=== PATIENT | female | born 1950 | race Caucasian/White ===

== ENCOUNTER 2017-10-04 13:27 | Outpatient (CLI) | payer MEDICARE ==
--- NOTE | 2017-10-04 15:49 | RAD ---
PA AND LATERAL VIEWS OF CHEST: Date: 10/04/17 HISTORY: Dyspnea. FINDINGS: The heart size is normal. The aorta is tortuous. The lungs are well expanded without focal areas of c onsolidation, pneumothoraces, or pleural effusions. There are degenerative changes in the spine. IMPRESSION: No radiographic evidence of acute cardiopulmonary process. POS: C
== END 2017-10-04 13:28 | disposition home or self-care (01) ==
LOC: RAD 13:27
PROVIDERS: ATTEND Internal Medicine Pulmonary Disease
DX: R06.00 Dyspnea, unspecified (principal)
CPT/HCPCS: 71046

== ENCOUNTER 2017-11-19 20:30 | Outpatient (CLI) | payer MEDICARE | END 2017-11-19 20:31 | disposition home or self-care (01) | LOC: SLEEPLAB 20:30 | PROVIDERS: ATTEND Internal Medicine Pulmonary Disease | DX: G47.33 Obstructive sleep apnea (adult) (pediatric) (principal); E66.9 Obesity, unspecified; R06.83 Snoring; I48.91 Unspecified atrial fibrillation; Z68.39 Body mass index [BMI] 39.0-39.9, adult | CPT/HCPCS: 95810 ==

== ENCOUNTER 2018-01-08 19:30 | Outpatient (CLI) | payer MEDICARE | END 2018-01-08 19:31 | disposition home or self-care (01) | LOC: SLEEPLAB 19:30 | PROVIDERS: ATTEND Internal Medicine Pulmonary Disease | DX: G47.33 Obstructive sleep apnea (adult) (pediatric) (principal); I49.9 Cardiac arrhythmia, unspecified; R06.83 Snoring; E66.9 Obesity, unspecified; Z68.39 Body mass index [BMI] 39.0-39.9, adult | CPT/HCPCS: 95811 ==

== ENCOUNTER 2019-02-14 15:50 | Outpatient (CLI) | payer MEDICARE ==
--- NOTE | 2019-02-14 16:37 | MMO ---
Bilateral MAMMO Bilat Screen [facility]. CLINICAL HISTORY: Patient is 68 years old and is seen for screening. The patient has no family history of breast cancer. The patient has no personal history of cancer. The patient has a history of left Excisional Biopsy in 18 - benign. VIEWS: The views performed were: bilateral craniocaudal with tomosynthesis and bilateral mediolateral oblique with tomosynthesis. FILMS COMPARED: The present examination has been compared to prior imaging studies performed at [facility] on 12/24/2014, 12/27/2015, 01/15/2017 and 02/08/2018. MAMMOGRAM FINDINGS: There are scattered fibroglandular densities. There are no suspicious masses, suspicious calcifications, or new areas of architectural distortion. IMPRESSION: THERE IS NO MAMMOGRAPHIC EVIDENCE OF MALIGNANCY. A ROUTINE FOLLOW-UP MAMMOGRAM IN 1 YEAR IS RECOMMENDED. THE RESULTS OF THIS EXAM WERE SENT TO THE PATIENT. ACR BI-RADS Category 1 - Negative MAMMOGRAPHY NOTE: 1. A negative mammogram report should not delay a biopsy if a dominant of clinically suspicious mass is present. 2. Approximately 10% to 15% of breast cancers are not detected by mammography. 3. Adenosis and dense breasts may obscure an underlying neoplasm. Reported by: ILIR HURLEY MD Electonically Signed: [id number]
== END 2019-02-14 15:51 | disposition home or self-care (01) ==
LOC: BICMAMMO 15:50
PROVIDERS: ATTEND Student in an Organized Health Care Education/Training Program
DX: Z12.31 Encounter for screening mammogram for malignant neoplasm of breast (principal); Z91.89 Other specified personal risk factors, not elsewhere classified
CPT/HCPCS: 77063; 77067

== ENCOUNTER 2020-03-12 14:24 | Outpatient (CLI) | payer MEDICARE ==
--- NOTE | 2020-03-12 15:08 | MMO ---
Bilateral MAMMO Bilat Screen [facility]. CLINICAL HISTORY: Patient is 69 years old and is seen for screening. The patient has no family history of breast cancer. The patient has no personal history of cancer. The patient has a history of left Excisional Biopsy in 18 - benign. VIEWS: The views performed were: bilateral craniocaudal with tomosynthesis and bilateral mediolateral oblique with tomosynthesis. FILMS COMPARED: The present examination has been compared to prior imaging studies performed at [facility] on 12/27/2015, 01/15/2017, 02/08/2018 and 02/14/2019. This study has been interpreted with the assistance of computer-aided detection. MAMMOGRAM FINDINGS: There are scattered fibroglandular densities. Finding 1: There are stable benign appearing calcifications seen in both breasts. Finding 2: There are multiple masses of varying size with circumscribed margins seen in both breasts. There are no suspicious masses, suspicious calcifications, or new areas of architectural distortion. IMPRESSION: THERE IS NO MAMMOGRAPHIC EVIDENCE OF MALIGNANCY. A ROUTINE FOLLOW-UP MAMMOGRAM IN 1 YEAR IS RECOMMENDED. THE RESULTS OF THIS EXAM WERE SENT TO THE PATIENT. ACR BI-RADS Category 2 - Benign finding MAMMOGRAPHY NOTE: 1. A negative mammogram report should not delay a biopsy if a dominant of clinically suspicious mass is present. 2. Approximately 10% to 15% of breast cancers are not detected by mammography. 3. Adenosis and dense breasts may obscure an underlying neoplasm. Reported by: ALOK PEÑA MD Electonically Signed: [id number]
== END 2020-03-12 14:25 | disposition home or self-care (01) ==
LOC: BICMAMMO 14:24
PROVIDERS: ATTEND Student in an Organized Health Care Education/Training Program
DX: Z12.31 Encounter for screening mammogram for malignant neoplasm of breast (principal); Z91.89 Other specified personal risk factors, not elsewhere classified
CPT/HCPCS: 77063; 77067

== ENCOUNTER 2021-06-10 13:56 | Outpatient (CLI) | payer MEDICARE | END 2021-06-10 13:57 | disposition home or self-care (01) | LOC: BICMAMMO 13:56 | PROVIDERS: ATTEND Student in an Organized Health Care Education/Training Program | DX: Z12.31 Encounter for screening mammogram for malignant neoplasm of breast (principal); N63.25 Unspecified lump in the left breast, overlapping quadrants; Z91.89 Other specified personal risk factors, not elsewhere classified | CPT/HCPCS: 77063; 77067 ==

== ENCOUNTER 2021-06-13 15:22 | Outpatient (CLI) | payer MEDICARE | END 2021-06-13 15:23 | disposition home or self-care (01) | LOC: BICULT 15:22 | PROVIDERS: ATTEND Student in an Organized Health Care Education/Training Program | DX: R92.8 Other abnormal and inconclusive findings on diagnostic imaging of breast (principal) ==

== ENCOUNTER 2021-12-02 09:35 | Emergency (ER) | payer OTHER, MEDICARE ==
[2021-12-02] MEDS ORDERED: Boostrix 0.5 ML (Tdap) VIAL ONE ×2 (10:07→10:43)
[2021-12-02] MEDS ORDERED: Acetaminophen 500 MG TAB ONE (10:07)
[2021-12-02] MEDS ORDERED: Lidocaine 2% PF 5 ML VIAL ONE (10:08)
== END 2021-12-02 10:50 | disposition home or self-care (01) ==
LOC: ERS 09:35
DX: S61.412A Laceration without foreign body of left hand, initial encounter (principal); I48.91 Unspecified atrial fibrillation; E03.9 Hypothyroidism, unspecified; W54.0XXA Bitten by dog, initial encounter; Z23 Encounter for immunization; Z79.899 Other long term (current) drug therapy
CPT/HCPCS: 12001; 90471; 90715; J2001

== ENCOUNTER 2022-06-17 14:57 | Outpatient (CLI) | payer MEDICARE | END 2022-06-17 14:58 | disposition home or self-care (01) | LOC: BICMAMMO 14:57 | PROVIDERS: ATTEND Student in an Organized Health Care Education/Training Program | DX: Z12.31 Encounter for screening mammogram for malignant neoplasm of breast (principal); Z91.89 Other specified personal risk factors, not elsewhere classified | CPT/HCPCS: 77063; 77067 ==

== ENCOUNTER 2023-05-17 13:01 | Inpatient (IN) | payer MEDICARE ==
[2023-05-17] MEDS ORDERED: Ondansetron PF 4 MG/2 ML Vial ONE (13:15)
[2023-05-17 13:49] LABS: #Basophils 0.1 thou/uL (0.0-0.2); #Eosinphils 0.3 thou/uL (0.0-0.7); #Monocytes 1.3 thou/uL (0.11-0.59); %Eosinophils 2.6 % (0.0-10.0); %Lymphocytes 29.7 % (21.0-51.0); %Monocytes 13.3 % (0.0-10.0); %Neutrophils 53.2 % (42.0-75.0); Hematocrit 42.7 % (36.0-47.0); Hemoglobin 14.1 g/dL (12.0-16.0); Mean Corpuscular Hemoglobin 30.6 pg (27.0-31.0); Mean Corpuscular Volume 92.6 fl (78.0-98.0); Mean Platelet Volume 9.4 fL (7.4-10.4); Platelet Count 301 10x3/uL (130-400); RBC Distribution Width 13.5 % (11.5-14.5); Red Blood Cell (RBC) Count 4.61 mill/uL (4.20-5.40); White Blood Cell (WBC) Count 9.5 10x3/uL (4.8-10.8)
[2023-05-17] MEDS ORDERED: Famotidine/PF 20 mg/2ml Vial ONE (14:08)
[2023-05-17] MEDS ORDERED: Morphine 4 MG/ML VIAL ONE (14:08)
[2023-05-17 14:19] LABS: ALT (SGPT) 360 U/L (8-55); AST (SGOT) 267 U/L (5-34); Albumin 4.7 g/dL (3.4-4.8); Alkaline Phosphatase 163 U/L (40-110); Anion Gap 15 mmol/L (10-20); BUN (Urea Nitrogen) 16 mg/dL (9.8-20.1); Bilirubin, Total 3.7 mg/dL (0.2-1.2); Calc. Creatinine Clearance 0 mL/min (70-130); Calcium 9.6 mg/dL (7.8-10.44); Carbon Dioxide 25 mmol/L (23-31); Chloride 105 mmol/L (98-107); Estimated GFR 81; Globulin 2.7 g/dL (2.4-3.5); Glucose 110 mg/dL (83-110); Protein, Total 7.4 g/dL (5.8-8.1); Sodium 141 mmol/L (136-145)
[2023-05-17 14:51] LABS: Troponin I Less than 0.010 ng/mL (< 0.028)
[2023-05-17] MEDS ORDERED: Piperacillin/Tazobactam 3.375 GM VIAL ONE (15:01)
[2023-05-17] MEDS ORDERED: Sodium Chloride 0.9% 100 ML ONE (15:02)
[2023-05-17] MEDS ORDERED: Magnevist 469MG/ML 20 ML VIAL ONE (15:08)
[2023-05-17 15:12] LABS: Lipase Greater than 16000 U/L (8-78)
[2023-05-17] MEDS ORDERED: Promethazine HCl 25 MG/ML VIAL IM PRN ×2 (15:47)
[2023-05-17] MEDS ORDERED: Acetaminophen 650 MG Suppository PR PRN (15:47)
[2023-05-17] MEDS ORDERED: Morphine 2 MG/ML VIAL SLOW IVP PRN (15:53)
[2023-05-17] MEDS ORDERED: hydrALAZINE 20 MG/ML VIAL SLOW IVP PRN (17:19)
[2023-05-17 17:39] LABS: Magnesium 2.2 mg/dL (1.6-2.6)
[2023-05-17] MEDS: Sodium Chloride 0.9% 1,000 ML IV SCH (18:05)
[2023-05-17] MEDS: Morphine 4 MG/ML VIAL SLOW IVP PRN (18:06)
[2023-05-17] MEDS: Famotidine/PF 20 mg/2ml Vial SLOW IVP SCH (19:42)
[2023-05-17] MEDS: Piperacillin/Tazobactam 3.375 GM in Sodium Chloride 0.9% 100 ML IVPB SCH (19:42)
[2023-05-17] MEDS: Ondansetron PF 4 MG/2 ML Vial IVP PRN (19:42)
[2023-05-18] MEDS: Piperacillin/Tazobactam 3.375 GM in Sodium Chloride 0.9% 100 ML IVPB SCH ×3 (04:05→20:30)
[2023-05-18] MEDS: Morphine 4 MG/ML VIAL SLOW IVP PRN (04:05)
[2023-05-18] MEDS: Sodium Chloride 0.9% 1,000 ML IV SCH ×5 (05:33→22:09)
[2023-05-18 06:14] LABS: #Basophils 0.1 thou/uL (0.0-0.2); #Eosinphils 0.1 thou/uL (0.0-0.7); #Monocytes 0.7 thou/uL (0.11-0.59); #Neutrophils 5.2 thou/uL (1.40-6.50); %Basophils 0.8 % (0.0-1.0); %Eosinophils 1.2 % (0.0-10.0); %Lymphocytes 18.6 % (21.0-51.0); %Monocytes 9.5 % (0.0-10.0); %Neutrophils 69.5 % (42.0-75.0); Hematocrit 38.7 % (36.0-47.0); Hemoglobin 12.4 g/dL (12.0-16.0); Mean Corpuscular Hemoglobin 30.6 pg (27.0-31.0); Mean Platelet Volume 9.2 fL (7.4-10.4); Platelet Count 234 10x3/uL (130-400); RBC Distribution Width 13.6 % (11.5-14.5); Red Blood Cell (RBC) Count 4.05 mill/uL (4.20-5.40); White Blood Cell (WBC) Count 7.5 10x3/uL (4.8-10.8)
[2023-05-18 06:17] LABS: Mean Corpuscular Volume 95.6 fl (78.0-98.0)
[2023-05-18 06:51] LABS: Lipase 1952 U/L (8-78)
[2023-05-18 07:13] LABS: ALT (SGPT) 220 U/L (8-55); AST (SGOT) 104 U/L (5-34); Albumin 3.6 g/dL (3.4-4.8); Alkaline Phosphatase 120 U/L (40-110); Anion Gap 13 mmol/L (10-20); BUN (Urea Nitrogen) 16 mg/dL (9.8-20.1); Bilirubin, Total 0.9 mg/dL (0.2-1.2); Calc. Creatinine Clearance 92 mL/min (70-130); Calcium 8.6 mg/dL (7.8-10.44); Carbon Dioxide 22 mmol/L (23-31); Cardiac Risk 3.2 (Less than 4.5); Chloride 110 mmol/L (98-107); Cholesterol 161 mg/dl (< 200 Desired); Estimated GFR 86; Globulin 2.5 g/dL (2.4-3.5); Glucose 87 mg/dL (83-110); HDL Cholesterol 51 mg/dL (>60 Neg Risk); LDL Cholesterol, Calculated 93 mg/dL; Phosphorus 3.8 mg/dL (2.3-4.7); Potassium 3.7 mmol/L (3.5-5.1); Protein, Total 6.1 g/dL (5.8-8.1); Sodium 141 mmol/L (136-145); Triglycerides 86 mg/dL (Less than 150)
[2023-05-18] MEDS: Famotidine/PF 20 mg/2ml Vial SLOW IVP SCH ×2 (08:49→22:07)
[2023-05-19] MEDS: Piperacillin/Tazobactam 3.375 GM in Sodium Chloride 0.9% 100 ML IVPB SCH ×3 (04:13→20:50)
[2023-05-19] MEDS: Sodium Chloride 0.9% 1,000 ML IV SCH ×2 (04:20→19:49)
[2023-05-19] MEDS: Levothyroxine Sodium 50 MCG TAB PO SCH (06:08)
[2023-05-19 07:05] LABS: #Basophils 0.1 thou/uL (0.0-0.2); #Eosinphils 0.4 thou/uL (0.0-0.7); #Monocytes 1.1 thou/uL (0.11-0.59); #Neutrophils 5.8 thou/uL (1.40-6.50); %Basophils 0.6 % (0.0-1.0); %Eosinophils 3.9 % (0.0-10.0); %Lymphocytes 18.1 % (21.0-51.0); %Monocytes 12.7 % (0.0-10.0); %Neutrophils 64.5 % (42.0-75.0); Hematocrit 36.7 % (36.0-47.0); Mean Corpuscular HGB CONC 32.7 g/dL (32.0-36.0); Mean Corpuscular Hemoglobin 30.8 pg (27.0-31.0); Mean Corpuscular Volume 94.1 fl (78.0-98.0); Mean Platelet Volume 9.4 fL (7.4-10.4); Platelet Count 221 10x3/uL (130-400); RBC Distribution Width 13.4 % (11.5-14.5)
[2023-05-19 07:39] LABS: INR-International Normal Ratio 1.2; Prothrombin Time 15.8 sec (12.0-14.7)
[2023-05-19] MEDS ORDERED: fentaNYL PF 100 MCG/2 ML SYRINGE ONE (07:57)
[2023-05-19] MEDS ORDERED: SUGAMMADEX SODIUM 200 MG/2 ML VIAL ONE (07:58)
[2023-05-19 08:10] LABS: ALT (SGPT) 151 U/L (8-55); AST (SGOT) 47 U/L (5-34); Albumin 3.5 g/dL (3.4-4.8); Alkaline Phosphatase 102 U/L (40-110); Anion Gap 14 mmol/L (10-20); BUN (Urea Nitrogen) 9 mg/dL (9.8-20.1); Calc. Creatinine Clearance 96 mL/min (70-130); Calcium 8.3 mg/dL (7.8-10.44); Carbon Dioxide 20 mmol/L (23-31); Chloride 107 mmol/L (98-107); Estimated GFR 91; Globulin 2.5 g/dL (2.4-3.5); Glucose 92 mg/dL (83-110); Potassium 3.4 mmol/L (3.5-5.1); Sodium 138 mmol/L (136-145)
[2023-05-19] MEDS ORDERED: Indomethacin 50 MG SUPP ONE (08:14)
[2023-05-19] MEDS ORDERED: Iopamidol 30 ML ONE (08:15)
[2023-05-19] MEDS ORDERED: Dexamethasone 20 MG/5 ML VIAL ONE (09:30)
[2023-05-19] MEDS ORDERED: Ondansetron PF 4 MG/2 ML Vial ONE ×2 (09:30→11:02)
[2023-05-19] MEDS ORDERED: PROPOFOL 200 MG/20 ML VIAL ONE (09:30)
[2023-05-19] MEDS ORDERED: Rocuronium Bromide 10 MG/ML (10ML VIAL) ONE (09:30)
[2023-05-19] MEDS ORDERED: Ondansetron HCl/PF 4 MG/2 ML Vial IVP PRN (09:45)
[2023-05-19] MEDS ORDERED: Promethazine HCl 25 MG/ML VIAL IM PRN (09:45)
[2023-05-19] MEDS ORDERED: HYDROmorphone 2 MG/ML VIAL SLOW IVP PRN (09:45)
[2023-05-19] MEDS: Famotidine/PF 20 mg/2ml Vial SLOW IVP SCH ×2 (11:41→20:50)
[2023-05-19] MEDS: Isosorbide Mononitrate 30 MG ER.TAB PO SCH (11:42)
[2023-05-19] MEDS: Ondansetron PF 4 MG/2 ML Vial IVP PRN ×2 (16:16→23:27)
[2023-05-20] MEDS: Sodium Chloride 0.9% 1,000 ML IV SCH ×4 (01:36→17:34)
[2023-05-20] MEDS: Piperacillin/Tazobactam 3.375 GM in Sodium Chloride 0.9% 100 ML IVPB SCH ×3 (04:52→20:17)
[2023-05-20] MEDS: Levothyroxine Sodium 50 MCG TAB PO SCH (05:00)
[2023-05-20 05:05] VITALS: BMI 34.6
[2023-05-20] MEDS: Isosorbide Mononitrate 30 MG ER.TAB PO SCH (08:07)
[2023-05-20] MEDS: Morphine 4 MG/ML VIAL SLOW IVP PRN (08:07)
[2023-05-20] MEDS: Famotidine/PF 20 mg/2ml Vial SLOW IVP SCH ×2 (08:07→20:18)
[2023-05-20] MEDS: Potassium Chloride 20 MEQ in Premix 1 BAG IVPB SCH ×2 (08:13→11:27)
[2023-05-20] MEDS ORDERED: Piperacillin/Tazobactam 3.375 GM VIAL ONE (10:11)
[2023-05-20] MEDS ORDERED: EPINEPHrine 1 MG/ML VIAL ONE (13:02)
[2023-05-20] MEDS ORDERED: Bupivacaine 0.25% HCL 30 ML VIAL ONE (13:03)
[2023-05-20] MEDS ORDERED: fentaNYL PF 100 MCG/2 ML SYRINGE ONE ×2 (15:04→16:17)
[2023-05-20] MEDS ORDERED: Dexamethasone 20 MG/5 ML VIAL ONE (15:18)
[2023-05-20] MEDS ORDERED: Ondansetron PF 4 MG/2 ML Vial ONE ×2 (15:18→16:57)
[2023-05-20] MEDS ORDERED: Rocuronium Bromide 10 MG/ML (10ML VIAL) ONE (15:18)
[2023-05-20] MEDS ORDERED: NEOSTIGMINE 3 MG/3 ML SYR 3 MG/3 ML SYRINGE ONE (15:18)
[2023-05-20] MEDS ORDERED: Metoclopramide HCl 10 MG/2 ML VIAL ONE (15:18)
[2023-05-20] MEDS ORDERED: Lidocaine 1% PF 5 ML VIAL ONE (15:18)
[2023-05-20] MEDS ORDERED: PROPOFOL 200 MG/20 ML VIAL ONE (15:18)
[2023-05-20] MEDS ORDERED: Glycopyrrolate 0.2 MG/ML 5 ML SYRINGE ONE (15:18)
[2023-05-20] MEDS ORDERED: Metoprolol Tartrate 5 MG/5 ML VIAL ONE (15:18)
[2023-05-20] MEDS ORDERED: Succinylcholine Chloride 100 MG/5 ML SYRINGE FS ONE (15:18)
[2023-05-20] MEDS ORDERED: Ondansetron HCl/PF 4 MG/2 ML Vial IVP PRN ×2 (15:54→15:55)
[2023-05-20] MEDS ORDERED: Morphine Sulfate 2 MG/ML SYRINGE SLOW IVP PRN (15:54)
[2023-05-20] MEDS ORDERED: HYDROmorphone 2 MG/ML VIAL SLOW IVP PRN (15:54)
[2023-05-20] MEDS ORDERED: Promethazine HCl 25 MG/ML VIAL IM PRN ×2 (15:54→15:55)
[2023-05-20] MEDS ORDERED: Meperidine HCl/PF 25 MG/ML VIAL SLOW IVP PRN (15:55)
[2023-05-21] MEDS: Sodium Chloride 0.9% 1,000 ML IV SCH ×2 (00:19→08:57)
[2023-05-21] MEDS: Piperacillin/Tazobactam 3.375 GM in Sodium Chloride 0.9% 100 ML IVPB SCH ×2 (04:47→12:20)
[2023-05-21] MEDS: Levothyroxine Sodium 50 MCG TAB PO SCH (05:00)
[2023-05-21 06:19] LABS: #Monocytes 0.5 thou/uL (0.11-0.59); #Neutrophils 7.8 thou/uL (1.40-6.50); %Basophils 0.1 % (0.0-1.0); %Lymphocytes 7.1 % (21.0-51.0); %Neutrophils 86.2 % (42.0-75.0); Hematocrit 34.7 % (36.0-47.0); Hemoglobin 11.3 g/dL (12.0-16.0); Mean Corpuscular HGB CONC 32.6 g/dL (32.0-36.0); Mean Corpuscular Hemoglobin 30.2 pg (27.0-31.0); Mean Corpuscular Volume 92.8 fl (78.0-98.0); Mean Platelet Volume 9.6 fL (7.4-10.4); Platelet Count 219 10x3/uL (130-400); RBC Distribution Width 13.4 % (11.5-14.5); Red Blood Cell (RBC) Count 3.74 mill/uL (4.20-5.40); White Blood Cell (WBC) Count 9.1 10x3/uL (4.8-10.8)
[2023-05-21 06:52] LABS: ALT (SGPT) 111 U/L (8-55); AST (SGOT) 63 U/L (5-34); Albumin 3.5 g/dL (3.4-4.8); Alkaline Phosphatase 85 U/L (40-110); Anion Gap 16 mmol/L (10-20); BUN (Urea Nitrogen) 9 mg/dL (9.8-20.1); Bilirubin, Total 0.7 mg/dL (0.2-1.2); Calc. Creatinine Clearance 100 mL/min (70-130); Calcium 8.6 mg/dL (7.8-10.44); Carbon Dioxide 19 mmol/L (23-31); Chloride 110 mmol/L (98-107); Estimated GFR 91; Globulin 2.9 g/dL (2.4-3.5); Glucose 118 mg/dL (83-110); Potassium 3.7 mmol/L (3.5-5.1); Protein, Total 6.4 g/dL (5.8-8.1); Sodium 141 mmol/L (136-145)
[2023-05-21 07:53] VITALS: TEMP 98
[2023-05-21] MEDS: Isosorbide Mononitrate 30 MG ER.TAB PO SCH (08:51)
[2023-05-21] MEDS: Famotidine/PF 20 mg/2ml Vial SLOW IVP SCH (08:51)
[2023-05-21] MEDS: Ondansetron PF 4 MG/2 ML Vial IVP PRN (08:57)
[2023-05-21 12:09] VITALS: BP 150/73
== END 2023-05-21 14:42 | disposition home or self-care (01) | DRG 417 ==
LOC: ERS 13:01 → ERHOLD 15:40 → SURG A 17:49
PROVIDERS: ADMIT Internal Medicine; ATTEND Family Medicine
PROC: 0FC98ZZ Extirpation of Matter from Common Bile Duct, Via Natural or Artificial Opening Endoscopic (ICD-10-PCS; principal; 2023-05-19)
PROC: 0FT44ZZ Resection of Gallbladder, Percutaneous Endoscopic Approach (ICD-10-PCS; 2023-05-20)
DX: K80.50 Calculus of bile duct without cholangitis or cholecystitis without obstruction (principal); K85.10 Biliary acute pancreatitis without necrosis or infection; I48.20 Chronic atrial fibrillation, unspecified; I48.91 Unspecified atrial fibrillation; E03.9 Hypothyroidism, unspecified; I10 Essential (primary) hypertension; Z88.5 Allergy status to narcotic agent; Z79.01 Long term (current) use of anticoagulants
CPT/HCPCS: 36415; 71045; 74183; 74330; 76705; 80053; 80061; 83690; 83735; 84100; 84443; 84484; 85025; 85610; 88304; 93005; 96361; 96365; 96375; A9579; C1769; C1889; J0171; J1100; J1650; J2270; J2272; J2405; J2543; J2550; J2704; J2765; J3480; J3490; J7050; Q9967; S0020; S0028

== ENCOUNTER 2023-06-28 13:25 | Outpatient (CLI) | payer MEDICARE | END 2023-06-28 13:26 | disposition home or self-care (01) | LOC: BICMAMMO 13:25 | PROVIDERS: ATTEND Student in an Organized Health Care Education/Training Program | DX: Z12.31 Encounter for screening mammogram for malignant neoplasm of breast (principal); Z91.89 Other specified personal risk factors, not elsewhere classified | CPT/HCPCS: 77063; 77067 ==

== ENCOUNTER 2025-02-08 13:49 | Outpatient (CLI) | payer MEDICARE | END 2025-02-08 13:50 | disposition home or self-care (01) | LOC: BICRAD 13:49 | PROVIDERS: ATTEND Family Medicine | DX: R05.3 Chronic cough (principal) | CPT/HCPCS: 71046 ==